=== PATIENT | female | born 1990 | race Caucasian/White ===

== ENCOUNTER 2018-07-11 05:51 | Emergency (ER) | payer SELFPAY ==
[~2018-07-11] VITALS: Ht 157.5 cm; Wt 80.0 kg
[~2018-07-11 05:51] MED LIST: CIPROFLOXACN500 MG PO; METRONIDAZOL500 MG PO
[2018-07-11 06:39] LABS: IMMATURE GRANULOCYTES 0.6 % (0.0-5.0); MEAN CELL VOLUME 90.2 fL CALC (80.0-100.0); MEAN CORPUSCULAR HGB CONC 33.3 g/L CALC (32.0-36.0); NEUT# 6.15 thou/uL (2.00-7.15); RED BLOOD COUNT 4.7 mill/uL (4.20-5.60); RED CELL DISTRI WIDTH 12.5 % (11.5-15.5)
[2018-07-11 06:40] LABS: HEMATOCRIT 42.4 % (37.0-47.0); HEMOGLOBIN 14.1 g/dl (12.0-16.0)
[2018-07-11 06:53] LABS: ALKALINE PHOSPHATASE 87 u/l (38-126); ANION GAP 11 (6-22 (CALC)); BILIRUBIN, TOTAL 0.6 mg/dL (0.0-1.4); BUN 12 mg/dL (7-17); BUN/CREATININE RATIO 17 (12-20 (CALC)); CARBON DIOXIDE 24 mmol/l (22-30); CHLORIDE 109 mmol/l (95-108); CREATININE 0.7 mg/dL (0.5-1.0); GFR > 60 ML/MIN (>=60 (CALC)); GFR FOR AFR.AMER. > 60 ML/MIN (>=60 (CALC)); POTASSIUM 3.7 mmol/l (3.5-5.1); SGOT/AST 15 u/l (14-36); SODIUM 140 mmol/l (137-146); TOTAL PROTEIN 6.5 g/dL (6.3-8.2)
[2018-07-11 07:11] LABS: URINE BILIRUBIN - DIPSTICK NEGATIVE (NEGATIVE); URINE BLOOD DIPSTICK NEGATIVE (NEGATIVE); URINE COLOR YELLOW; URINE GLUCOSE - DIPSTICK NEGATIVE (NEGATIVE); URINE KETONE NEGATIVE (NEGATIVE); URINE LEUK ESTERASE NEGATIVE (NEGATIVE); URINE NITRITE - DIPSTICK NEGATIVE (Negative); URINE PH 5.5 (4.5-8.0); URINE PROTEIN - DIPSTICK NEGATIVE (NEG-TRACE); URINE SPECIFIC GRAVITY >=1.030; URINE UROBILINOGEN - DIPSTICK 0.2 E.U./dL (0.2)
[2018-07-11] MEDS ORDERED: ONDANSETRON4 MG PO (07:16)
[2018-07-11] MEDS ORDERED: ZITHROMAX250 MG PO (07:16)
[2018-07-11 07:26] VITALS: BP 128/70
== END 2018-07-11 07:26 | disposition home or self-care (01) | DRG 392 ==
LOC: ED 05:51
PROVIDERS: Family Medicine
DX: K52.9 Noninfective gastroenteritis and colitis, unspecified (principal); J02.9 Acute pharyngitis, unspecified; F17.210 Nicotine dependence, cigarettes, uncomplicated

== ENCOUNTER 2018-08-05 11:26 | Emergency (ER) | payer SELFPAY ==
[~2018-08-05] VITALS: Ht 157.5 cm; Wt 65.9 kg
[~2018-08-05 11:26] MED LIST changes: +ONDANSETRON4 MG PO; +ZITHROMAX250 MG PO
[2018-08-05 12:13] LABS: HEMATOCRIT 42.3 % (37.0-47.0); IMMATURE GRANULOCYTES 0.4 % (0.0-5.0); MEAN CELL VOLUME 90.2 fL CALC (80.0-100.0); MEAN CORPUSCULAR HGB 29.9 pG CALC (26.0-32.0); MEAN CORPUSCULAR HGB CONC 33.1 g/L CALC (32.0-36.0); NEUT# 5.51 thou/uL (2.00-7.15); RED BLOOD COUNT 4.69 mill/uL (4.20-5.60); RED CELL DISTRI WIDTH 12.5 % (11.5-15.5)
[2018-08-05 12:14] LABS: URINE BILIRUBIN - DIPSTICK NEGATIVE (NEGATIVE); URINE BLOOD DIPSTICK NEGATIVE (NEGATIVE); URINE COLOR YELLOW; URINE GLUCOSE - DIPSTICK NEGATIVE (NEGATIVE); URINE KETONE NEGATIVE (NEGATIVE); URINE LEUK ESTERASE NEGATIVE (NEGATIVE); URINE PROTEIN - DIPSTICK NEGATIVE (NEG-TRACE)
[2018-08-05 12:15] LABS: URINE BACTERIA MANY hpf; URINE NITRITE - DIPSTICK POSITIVE (Negative)
[2018-08-05 12:32] LABS: ALBUMIN 4.3 g/dL (3.2-5.0); ALKALINE PHOSPHATASE 73 u/l (38-126); ANION GAP 14 (6-22 (CALC)); BILIRUBIN, TOTAL 0.7 mg/dL (0.0-1.4); BUN 17 mg/dL (7-17); BUN/CREATININE RATIO 27 (12-20 (CALC)); CARBON DIOXIDE 20 mmol/l (22-30); CHLORIDE 110 mmol/l (95-108); CREATININE 0.6 mg/dL (0.5-1.0); GFR > 60 ML/MIN (>=60 (CALC)); GFR FOR AFR.AMER. > 60 ML/MIN (>=60 (CALC)); LIPASE 113 u/l (23-300); POTASSIUM 4.1 mmol/l (3.5-5.1); SGOT/AST 18 u/l (14-36); SODIUM 139 mmol/l (137-146); TOTAL PROTEIN 7.3 g/dL (6.3-8.2)
[2018-08-05] MEDS ORDERED: ONDANSETRON4 MG PO (13:42)
[2018-08-05] MEDS ORDERED: CEPHALEXIN500 M1 PO (14:07)
[2018-08-05 14:09] VITALS: BP 104/52
== END 2018-08-05 14:17 | disposition home or self-care (01) | DRG 392 ==
LOC: ED 11:26
PROVIDERS: Family Medicine
DX: K52.9 Noninfective gastroenteritis and colitis, unspecified (principal); F17.200 Nicotine dependence, unspecified, uncomplicated; R82.71 Bacteriuria
CPT/HCPCS: Q9967

== ENCOUNTER 2018-09-20 04:33 | Emergency (ER) | payer SELFPAY ==
[~2018-09-20] VITALS: Ht 157.5 cm; Wt 77.0 kg
[~2018-09-20 04:33] MED LIST changes: +CEPHALEXIN500 M1 PO
[2018-09-20 05:29] LABS: URINE BILIRUBIN - DIPSTICK NEGATIVE (NEGATIVE); URINE BLOOD DIPSTICK NEGATIVE (NEGATIVE); URINE COLOR YELLOW; URINE GLUCOSE - DIPSTICK NEGATIVE (NEGATIVE); URINE KETONE NEGATIVE (NEGATIVE); URINE LEUK ESTERASE NEGATIVE (NEGATIVE); URINE NITRITE - DIPSTICK NEGATIVE (Negative); URINE PH 7.5 (4.5-8.0); URINE PROTEIN - DIPSTICK NEGATIVE (NEG-TRACE); URINE UROBILINOGEN - DIPSTICK 0.2 E.U./dL (0.2)
[2018-09-20 05:33] LABS: HEMATOCRIT 42.2 % (37.0-47.0); HEMOGLOBIN 14.1 g/dl (12.0-16.0); IMMATURE GRANULOCYTES 0.4 % (0.0-5.0); MEAN CELL VOLUME 89.2 fL CALC (80.0-100.0); MEAN CORPUSCULAR HGB 29.8 pG CALC (26.0-32.0); MEAN CORPUSCULAR HGB CONC 33.4 g/L CALC (32.0-36.0); NEUT# 5.68 thou/uL (2.00-7.15); RED BLOOD COUNT 4.73 mill/uL (4.20-5.60); RED CELL DISTRI WIDTH 12.5 % (11.5-15.5)
[2018-09-20 06:00] LABS: ALBUMIN 4.4 g/dL (3.2-5.0); ALKALINE PHOSPHATASE 82 u/l (38-126); AMYLASE 83 u/l (30-110); ANION GAP 16 (6-22 (CALC)); BILIRUBIN, TOTAL 0.3 mg/dL (0.0-1.4); BUN 11 mg/dL (7-17); BUN/CREATININE RATIO 21 (12-20 (CALC)); CARBON DIOXIDE 22 mmol/l (22-30); CHLORIDE 106 mmol/l (95-108); CREATININE 0.5 mg/dL (0.5-1.0); GFR > 60 ML/MIN (>=60 (CALC)); GFR FOR AFR.AMER. > 60 ML/MIN (>=60 (CALC)); LIPASE 157 u/l (23-300); POTASSIUM 4.1 mmol/l (3.5-5.1); SGOT/AST 19 u/l (14-36); SODIUM 139 mmol/l (137-146); TOTAL PROTEIN 7.1 g/dL (6.3-8.2)
[2018-09-20] MEDS ORDERED: ZOFRAN ODT4 MG PO (06:48)
[2018-09-20 06:52] VITALS: BP 95/47
== END 2018-09-20 07:00 | disposition home or self-care (01) | DRG 833 ==
LOC: ED 04:33
PROVIDERS: Family Medicine
DX: O21.9 Vomiting of pregnancy, unspecified (principal); O99.330 Smoking (tobacco) complicating pregnancy, unspecified trimester; F17.200 Nicotine dependence, unspecified, uncomplicated; Z3A.00 Weeks of gestation of pregnancy not specified

== ENCOUNTER 2018-09-25 11:04 | Emergency (ER) | payer SELFPAY ==
[~2018-09-25] VITALS: Ht 157.5 cm; Wt 90.0 kg
[~2018-09-25 11:04] MED LIST changes: +ZOFRAN ODT4 MG PO
[2018-09-25 11:49] LABS: HEMATOCRIT 41.4 % (37.0-47.0); HEMOGLOBIN 13.8 g/dl (12.0-16.0); IMMATURE GRANULOCYTES 0.4 % (0.0-5.0); MEAN CELL VOLUME 87.7 fL CALC (80.0-100.0); MEAN CORPUSCULAR HGB 29.2 pG CALC (26.0-32.0); MEAN CORPUSCULAR HGB CONC 33.3 g/L CALC (32.0-36.0); NEUT# 6.74 thou/uL (2.00-7.15); RED BLOOD COUNT 4.72 mill/uL (4.20-5.60); RED CELL DISTRI WIDTH 12.4 % (11.5-15.5)
[2018-09-25 12:10] LABS: ALBUMIN 4.7 g/dL (3.2-5.0); ALKALINE PHOSPHATASE 70 u/l (38-126); ANION GAP 16 (6-22 (CALC)); BUN 12 mg/dL (7-17); BUN/CREATININE RATIO 24 (12-20 (CALC)); CARBON DIOXIDE 20 mmol/l (22-30); CHLORIDE 107 mmol/l (95-108); CREATININE 0.5 mg/dL (0.5-1.0); GFR > 60 ML/MIN (>=60 (CALC)); GFR FOR AFR.AMER. > 60 ML/MIN (>=60 (CALC)); LIPASE 117 u/l (23-300); SGOT/AST 15 u/l (14-36); SODIUM 140 mmol/l (137-146); TOTAL PROTEIN 7.5 g/dL (6.3-8.2)
[2018-09-25 12:12] LABS: BILIRUBIN, TOTAL 0.7 mg/dL (0.0-1.4)
[2018-09-25 12:27] LABS: URINE BILIRUBIN - DIPSTICK NEGATIVE (NEGATIVE); URINE BLOOD DIPSTICK NEGATIVE (NEGATIVE); URINE GLUCOSE - DIPSTICK NEGATIVE (NEGATIVE); URINE KETONE TRACE mg/dL (NEGATIVE); URINE LEUK ESTERASE TRACE (NEGATIVE); URINE NITRITE - DIPSTICK NEGATIVE (Negative); URINE PROTEIN - DIPSTICK NEGATIVE (NEG-TRACE); URINE UROBILINOGEN - DIPSTICK 0.2 E.U./dL (0.2)
[2018-09-25 12:29] LABS: URINE COLOR YELLOW
[2018-09-25 12:58] LABS: BETA-HCG, QUANT(RESULT NUMBER) 111860 mIU/mL
[2018-09-25] MEDS ORDERED: REGLAN10 MG PO (14:12)
[2018-09-25 14:22] VITALS: BP 104/58
== END 2018-09-25 14:24 | disposition home or self-care (01) | DRG 833 ==
LOC: ED 11:04
PROVIDERS: Family Medicine
DX: O99.611 Diseases of the digestive system complicating pregnancy, first trimester (principal); K52.9 Noninfective gastroenteritis and colitis, unspecified; Z3A.00 Weeks of gestation of pregnancy not specified

== ENCOUNTER 2018-10-23 21:43 | Emergency (ER) | payer OTHER ==
[~2018-10-23] VITALS: Ht 157.5 cm; Wt 73.0 kg
[~2018-10-23 21:43] MED LIST changes: +REGLAN10 MG PO
[2018-10-23 22:43] LABS: HEMOGLOBIN 12.8 g/dl (12.0-16.0); IMMATURE GRANULOCYTES 1.2 % (0.0-5.0); MEAN CORPUSCULAR HGB 29.6 pG CALC (26.0-32.0); MEAN CORPUSCULAR HGB CONC 33.7 g/L CALC (32.0-36.0); NEUT# 7.82 thou/uL (2.00-7.15); RED BLOOD COUNT 4.32 mill/uL (4.20-5.60); RED CELL DISTRI WIDTH 12.5 % (11.5-15.5)
[2018-10-23 23:08] LABS: ALBUMIN 4.3 g/dL (3.2-5.0); ALKALINE PHOSPHATASE 55 u/l (38-126); AMYLASE 76 u/l (30-110); ANION GAP 16 (6-22 (CALC)); BUN 13 mg/dL (7-17); BUN/CREATININE RATIO 27 (12-20 (CALC)); CARBON DIOXIDE 19 mmol/l (22-30); CHLORIDE 108 mmol/l (95-108); CREATININE 0.5 mg/dL (0.5-1.0); GFR > 60 ML/MIN (>=60 (CALC)); GFR FOR AFR.AMER. > 60 ML/MIN (>=60 (CALC)); LIPASE 133 u/l (23-300); POTASSIUM 4.4 mmol/l (3.5-5.1); SGOT/AST 22 u/l (14-36); SODIUM 138 mmol/l (137-146); TOTAL PROTEIN 6.9 g/dL (6.3-8.2)
[2018-10-23 23:13] LABS: BILIRUBIN, TOTAL 0.4 mg/dL (0.0-1.4)
[2018-10-24] VITALS: BP 131/61
[2018-10-24 00:23] LABS: URINE BILIRUBIN - DIPSTICK NEGATIVE (NEGATIVE); URINE BLOOD DIPSTICK NEGATIVE (NEGATIVE); URINE COLOR YELLOW; URINE GLUCOSE - DIPSTICK NEGATIVE (NEGATIVE); URINE KETONE 40 mg/dL (NEGATIVE); URINE NITRITE - DIPSTICK NEGATIVE (Negative); URINE PH 5.5 (4.5-8.0); URINE PROTEIN - DIPSTICK NEGATIVE (NEG-TRACE); URINE SPECIFIC GRAVITY 1.025; URINE UROBILINOGEN - DIPSTICK 0.2 E.U./dL (0.2)
[2018-10-24 00:28] LABS: URINE LEUK ESTERASE SMALL (NEGATIVE)
[2018-10-24 00:35] LABS: URINE BACTERIA MODERATE hpf; URINE SQUAMOUS EPITHELIAL CELL FEW EPI/hpf (0-FEW)
[2018-10-24] MEDS ORDERED: CEPHALEXIN500 M1 PO (00:42)
[2018-10-24] MEDS ORDERED: PHENERGAN25 MG/TAB PO (00:42)
== END 2018-10-24 00:52 | disposition home or self-care (01) ==
LOC: ED 21:43
PROVIDERS: Emergency Medicine
DX: O23.91 Unspecified genitourinary tract infection in pregnancy, first trimester (principal); R11.2 Nausea with vomiting, unspecified; Z3A.12 12 weeks gestation of pregnancy

== ENCOUNTER 2018-11-05 22:41 | Emergency (ER) | payer OTHER ==
[~2018-11-05] VITALS: Ht 157.5 cm; Wt 78.4 kg
[~2018-11-05 22:41] MED LIST changes: +PHENERGAN25 MG/TAB PO
[2018-11-05 23:47] LABS: URINE BILIRUBIN - DIPSTICK NEGATIVE (NEGATIVE); URINE BLOOD DIPSTICK NEGATIVE (NEGATIVE); URINE COLOR YELLOW; URINE GLUCOSE - DIPSTICK NEGATIVE (NEGATIVE); URINE KETONE NEGATIVE (NEGATIVE); URINE NITRITE - DIPSTICK NEGATIVE (Negative); URINE PROTEIN - DIPSTICK NEGATIVE (NEG-TRACE); URINE SPECIFIC GRAVITY 1.025; URINE UROBILINOGEN - DIPSTICK 0.2 E.U./dL (0.2)
[2018-11-05 23:48] LABS: HEMATOCRIT 36.1 % (37.0-47.0); HEMOGLOBIN 12.1 g/dl (12.0-16.0); IMMATURE GRANULOCYTES 0.7 % (0.0-5.0); MEAN CELL VOLUME 89.1 fL CALC (80.0-100.0); MEAN CORPUSCULAR HGB 29.9 pG CALC (26.0-32.0); MEAN CORPUSCULAR HGB CONC 33.5 g/L CALC (32.0-36.0); NEUT# 8.83 thou/uL (2.00-7.15); RED BLOOD COUNT 4.05 mill/uL (4.20-5.60); RED CELL DISTRI WIDTH 12.9 % (11.5-15.5); URINE LEUK ESTERASE MODERATE (NEGATIVE)
[2018-11-05 23:49] LABS: URINE BACTERIA FEW hpf; URINE EPITHELIAL CELLS MODERATE EPI/hpf (0-FEW)
[2018-11-06 00:05] LABS: ALKALINE PHOSPHATASE 50 u/l (38-126); AMYLASE 116 u/l (30-110); ANION GAP 12 (6-22 (CALC)); BILIRUBIN, TOTAL 0.3 mg/dL (0.0-1.4); BUN 9 mg/dL (7-17); BUN/CREATININE RATIO 20 (12-20 (CALC)); CHLORIDE 105 mmol/l (95-108); CREATININE 0.5 mg/dL (0.5-1.0); GFR > 60 ML/MIN (>=60 (CALC)); GFR FOR AFR.AMER. > 60 ML/MIN (>=60 (CALC)); LIPASE 257 u/l (23-300); POTASSIUM 3.8 mmol/l (3.5-5.1); SGOT/AST 15 u/l (14-36); SODIUM 137 mmol/l (137-146); TOTAL PROTEIN 6.5 g/dL (6.3-8.2)
[2018-11-06 00:06] LABS: CARBON DIOXIDE 24 mmol/l (22-30)
[2018-11-06] MEDS ORDERED: CEPHALEXIN500 M1 PO (00:48)
[2018-11-06] MEDS ORDERED: PHENERGAN25 MG/TAB PO (00:48)
[2018-11-06] MEDS ORDERED: PHENERGAN25 M1 PR (00:48)
[2018-11-06 01:18] VITALS: BP 118/67
== END 2018-11-06 01:15 | disposition home or self-care (01) ==
LOC: ED 22:41
PROVIDERS: Emergency Medicine
DX: O21.0 Mild hyperemesis gravidarum (principal); O23.42 Unspecified infection of urinary tract in pregnancy, second trimester; O99.332 Smoking (tobacco) complicating pregnancy, second trimester; F17.200 Nicotine dependence, unspecified, uncomplicated; Z3A.14 14 weeks gestation of pregnancy

== ENCOUNTER 2019-01-05 18:28 | Emergency (ER) | payer OTHER ==
[~2019-01-05] VITALS: Ht 157.5 cm; Wt 78.0 kg
[~2019-01-05 18:28] MED LIST changes: +PHENERGAN25 M1 PR
[2019-01-05 19:38] LABS: URINE BLOOD DIPSTICK NEGATIVE (NEGATIVE); URINE COLOR YELLOW; URINE GLUCOSE - DIPSTICK NEGATIVE (NEGATIVE); URINE KETONE >=80 mg/dL (NEGATIVE); URINE LEUK ESTERASE NEGATIVE (NEGATIVE); URINE NITRITE - DIPSTICK NEGATIVE (Negative); URINE PH 6.5 (4.5-8.0); URINE PROTEIN - DIPSTICK 30 mg/dL (NEG-TRACE); URINE SPECIFIC GRAVITY 1.025; URINE UROBILINOGEN - DIPSTICK 0.2 E.U./dL (0.2)
[2019-01-05 19:42] LABS: URINE BILIRUBIN - DIPSTICK NEGATIVE (NEGATIVE); URINE RBC 0-2 RBC/hpf (0-5); URINE SQUAMOUS EPITHELIAL CELL FEW EPI/hpf (0-FEW); URINE WBC 0-2 WBC/hpf (0-5)
[2019-01-05 19:44] LABS: HEMATOCRIT 37.5 % (37.0-47.0); HEMOGLOBIN 12.5 g/dl (12.0-16.0); MEAN CELL VOLUME 89.9 fL CALC (80.0-100.0); MEAN CORPUSCULAR HGB CONC 33.3 g/L CALC (32.0-36.0); NEUT# 10.74 thou/uL (2.00-7.15); RED BLOOD COUNT 4.17 mill/uL (4.20-5.60)
[2019-01-05] MEDS ORDERED: PROTONIX20 M1 PO (19:54)
[2019-01-05] MEDS ORDERED: OB COMPLET2 PO (19:54)
[2019-01-05 20:01] LABS: ALBUMIN 4.1 g/dL (3.2-5.0); ALKALINE PHOSPHATASE 70 u/l (38-126); AMYLASE 106 u/l (30-110); ANION GAP 15 (6-22 (CALC)); BUN 8 mg/dL (7-17); BUN/CREATININE RATIO 19 (12-20 (CALC)); CARBON DIOXIDE 20 mmol/l (22-30); CHLORIDE 107 mmol/l (95-108); CREATININE 0.4 mg/dL (0.5-1.0); GFR > 60 ML/MIN (>=60 (CALC)); GFR FOR AFR.AMER. > 60 ML/MIN (>=60 (CALC)); LIPASE 102 u/l (23-300); SGOT/AST 18 u/l (14-36); SODIUM 138 mmol/l (137-146); TOTAL PROTEIN 7.1 g/dL (6.3-8.2)
[2019-01-05 20:02] LABS: BILIRUBIN, TOTAL 0.5 mg/dL (0.0-1.4)
[2019-01-05 20:44] VITALS: BP 110/87
== END 2019-01-05 20:37 | disposition short-term general hospital (02) ==
LOC: ED 18:28
PROVIDERS: Emergency Medicine
DX: O26.892 Other specified pregnancy related conditions, second trimester (principal); R10.30 Lower abdominal pain, unspecified; O99.332 Smoking (tobacco) complicating pregnancy, second trimester; F17.210 Nicotine dependence, cigarettes, uncomplicated; Z3A.22 22 weeks gestation of pregnancy

== ENCOUNTER 2019-10-25 20:31 | Emergency (ER) | payer OTHER ==
[~2019-10-25 20:31] MED LIST changes: +OB COMPLET2 PO; +PROTONIX20 M1 PO
[2019-10-25 21:12] LABS: IMMATURE GRANULOCYTES 0.4 % (0.0-5.0); MEAN CORPUSCULAR HGB 29.1 pG CALC (26.0-32.0); MEAN CORPUSCULAR HGB CONC 33.5 g/dL CAL (32.0-36.0); NEUT# 7.92 thou/uL (2.00-7.15); RED BLOOD COUNT 4.84 mill/uL (4.20-5.60); RED CELL DISTRI WIDTH 13.4 % (11.5-15.5)
[2019-10-25 21:21] LABS: HEMATOCRIT 42.1 % (37.0-47.0); HEMOGLOBIN 14.1 g/dl (12.0-16.0)
[2019-10-25 21:28] LABS: PROTHROMBIN TIME 10.7 SECONDS (9.0-12.5)
[2019-10-25 21:31] LABS: ALBUMIN 4.3 g/dL (3.2-5.0); ALKALINE PHOSPHATASE 93 u/l (38-126); AMYLASE 132 u/l (30-110); ANION GAP 14 (6-22 (CALC)); BILIRUBIN, TOTAL 0.3 mg/dL (0.0-1.4); BUN 18 mg/dL (7-17); BUN/CREATININE RATIO 20 (12-20 (CALC)); CARBON DIOXIDE 20 mmol/l (22-30); CHLORIDE 106 mmol/l (95-108); CREATININE 0.9 mg/dL (0.5-1.0); ETHYL ALCOHOL 0 mg/dl (0-30); GFR > 60 ML/MIN (>=60 (CALC)); GFR FOR AFR.AMER. > 60 ML/MIN (>=60 (CALC)); LIPASE 176 u/l (23-300); POTASSIUM 3.7 mmol/l (3.5-5.1); SODIUM 136 mmol/l (137-146); TOTAL PROTEIN 7.5 g/dL (6.3-8.2)
[2019-10-25 21:32] LABS: URINE BILIRUBIN - DIPSTICK NEGATIVE (NEGATIVE); URINE BLOOD DIPSTICK NEGATIVE (NEGATIVE); URINE COLOR YELLOW; URINE GLUCOSE - DIPSTICK NEGATIVE (NEGATIVE); URINE KETONE NEGATIVE (NEGATIVE); URINE LEUK ESTERASE NEGATIVE (NEGATIVE); URINE NITRITE - DIPSTICK NEGATIVE (Negative); URINE PH 5.5 (4.5-8.0); URINE PROTEIN - DIPSTICK NEGATIVE (NEG-TRACE); URINE SPECIFIC GRAVITY >=1.030; URINE UROBILINOGEN - DIPSTICK 0.2 E.U./dL (0.2)
[2019-10-25 21:33] LABS: SGOT/AST 33 u/l (14-36)
[2019-10-25 21:43] LABS: BARBITURATES NEGATIVE (NEGATIVE); COCAINE NEGATIVE (NEGATIVE); METHADONE NEGATIVE (NEGATIVE); OXCYCODONE NEGATIVE (NEGATIVE); TETRAHYDROCANNABIONOL POSITIVE (NEGATIVE); TRICYLIC ANTIDEPRESSANTS NEGATIVE (NEGATIVE)
[2019-10-25] MEDS ORDERED: KEPPRA500 M2 PO (23:34)
[2019-10-25 23:45] VITALS: BP 112/70
== END 2019-10-25 23:51 | disposition home or self-care (01) ==
LOC: ED 20:31
DX: G40.909 Epilepsy, unspecified, not intractable, without status epilepticus (principal); T42.76XA Underdosing of unspecified antiepileptic and sedative-hypnotic drugs, initial encounter; F17.200 Nicotine dependence, unspecified, uncomplicated; Z91.128 Patient's intentional underdosing of medication regimen for other reason
CPT/HCPCS: J1953

== ENCOUNTER 2019-11-26 17:51 | Emergency (ER) | payer OTHER ==
[~2019-11-26] VITALS: Ht 157.5 cm; Wt 80.0 kg
[~2019-11-26 17:51] MED LIST changes: +KEPPRA500 M2 PO
[2019-11-26 19:05] LABS: HEMATOCRIT 41.7 % (37.0-47.0); HEMOGLOBIN 13.6 g/dl (12.0-16.0); IMMATURE GRANULOCYTES 0.2 % (0.0-5.0); MEAN CELL VOLUME 87.6 fL CALC (80.0-100.0); MEAN CORPUSCULAR HGB 28.6 pG CALC (26.0-32.0); MEAN CORPUSCULAR HGB CONC 32.6 g/dL CAL (32.0-36.0); NEUT# 8.12 thou/uL (2.00-7.15); RED BLOOD COUNT 4.76 mill/uL (4.20-5.60); RED CELL DISTRI WIDTH 13.2 % (11.5-15.5)
[2019-11-26 19:13] LABS: ALBUMIN 4.5 g/dL (3.2-5.0); ALKALINE PHOSPHATASE 97 u/l (38-126); ANION GAP 12 (6-22 (CALC)); BILIRUBIN, TOTAL 0.2 mg/dL (0.0-1.4); BUN 17 mg/dL (7-17); BUN/CREATININE RATIO 24 (12-20 (CALC)); CARBON DIOXIDE 22 mmol/l (22-30); CHLORIDE 108 mmol/l (95-108); CREATININE 0.7 mg/dL (0.5-1.0); GFR > 60 ML/MIN (>=60 (CALC)); GFR FOR AFR.AMER. > 60 ML/MIN (>=60 (CALC)); MAGNESIUM 1.7 mg/dL (1.6-2.3); POTASSIUM 3.5 mmol/l (3.5-5.1); SGOT/AST 20 u/l (14-36); SODIUM 138 mmol/l (137-146); TOTAL PROTEIN 7.5 g/dL (6.3-8.2)
[2019-11-26 20:20] LABS: URINE BILIRUBIN - DIPSTICK NEGATIVE (NEGATIVE); URINE BLOOD DIPSTICK NEGATIVE (NEGATIVE); URINE COLOR YELLOW; URINE GLUCOSE - DIPSTICK NEGATIVE (NEGATIVE); URINE KETONE NEGATIVE (NEGATIVE); URINE NITRITE - DIPSTICK NEGATIVE (Negative); URINE PROTEIN - DIPSTICK NEGATIVE (NEG-TRACE); URINE SPECIFIC GRAVITY >=1.030
[2019-11-26 20:22] LABS: URINE LEUK ESTERASE SMALL (NEGATIVE)
[2019-11-26 20:31] LABS: URINE BACTERIA MODERATE hpf; URINE SQUAMOUS EPITHELIAL CELL MODERATE EPI/hpf (0-FEW)
[2019-11-26] MEDS ORDERED: KEPPRA500 M2 PO (20:39)
[2019-11-26 20:41] VITALS: BP 157/72
== END 2019-11-26 20:47 | disposition home or self-care (01) ==
LOC: ED 17:51
DX: G40.909 Epilepsy, unspecified, not intractable, without status epilepticus (principal); S70.11XA Contusion of right thigh, initial encounter; T42.6X6A Underdosing of other antiepileptic and sedative-hypnotic drugs, initial encounter; F17.200 Nicotine dependence, unspecified, uncomplicated; W22.8XXA Striking against or struck by other objects, initial encounter; Z91.128 Patient's intentional underdosing of medication regimen for other reason
CPT/HCPCS: J1953

== ENCOUNTER 2020-07-19 17:03 | Emergency (ER) | payer OTHER ==
[~2020-07-19] VITALS: Ht 157.5 cm; Wt 77.0 kg
[2020-07-19 17:21] LABS: HEMATOCRIT 41.7 % (37.0-47.0); IMMATURE GRANULOCYTES 0.4 % (0.0-5.0); MEAN CELL VOLUME 86.9 fL CALC (80.0-100.0); MEAN CORPUSCULAR HGB 29.2 pG CALC (26.0-32.0); MEAN CORPUSCULAR HGB CONC 33.6 g/dL CAL (32.0-36.0); NEUT# 5.97 thou/uL (2.00-7.15); RED BLOOD COUNT 4.8 mill/uL (4.20-5.60); RED CELL DISTRI WIDTH 13.2 % (11.5-15.5)
[2020-07-19 17:43] LABS: ALBUMIN 4.3 g/dL (3.2-5.0); ALKALINE PHOSPHATASE 83 u/l (38-126); ANION GAP 16 (6-22 (CALC)); BUN 13 mg/dL (7-17); BUN/CREATININE RATIO 22 (12-20 (CALC)); CARBON DIOXIDE 19 mmol/l (22-30); CHLORIDE 107 mmol/l (95-108); CREATININE 0.6 mg/dL (0.5-1.0); GFR > 60 ML/MIN (>=60 (CALC)); GFR FOR AFR.AMER. > 60 ML/MIN (>=60 (CALC)); POTASSIUM 3.9 mmol/l (3.5-5.1); SGOT/AST 24 u/l (14-36); SODIUM 138 mmol/l (137-146); TOTAL PROTEIN 7.1 g/dL (6.3-8.2)
[2020-07-19 17:44] LABS: BILIRUBIN, TOTAL 0.8 mg/dL (0.0-1.4)
[2020-07-19 19:25] VITALS: BP 122/66
== END 2020-07-19 19:25 | disposition home or self-care (01) ==
LOC: ED 17:03
DX: G40.909 Epilepsy, unspecified, not intractable, without status epilepticus (principal); S01.01XA Laceration without foreign body of scalp, initial encounter; F17.210 Nicotine dependence, cigarettes, uncomplicated; T42.76XA Underdosing of unspecified antiepileptic and sedative-hypnotic drugs, initial encounter; X58.XXXA Exposure to other specified factors, initial encounter; Z91.128 Patient's intentional underdosing of medication regimen for other reason
CPT/HCPCS: J2060

== ENCOUNTER 2021-01-04 23:15 | Emergency (ER) | payer OTHER ==
[2021-01-04] MEDS ORDERED: [UNRECOGNIZED DRUG - OTHER] (23:53)
[2021-01-04] MEDS ORDERED: [UNRECOGNIZED DRUG - OTHER] (23:53)
[2021-01-05 00:29] LABS: URINE BILIRUBIN - DIPSTICK NEGATIVE (NEGATIVE); URINE BLOOD DIPSTICK NEGATIVE (NEGATIVE); URINE COLOR YELLOW; URINE GLUCOSE - DIPSTICK NEGATIVE (NEGATIVE); URINE KETONE NEGATIVE (NEGATIVE); URINE LEUK ESTERASE NEGATIVE (NEGATIVE); URINE PH 6.5 (4.5-8.0); URINE PROTEIN - DIPSTICK NEGATIVE (NEG-TRACE); URINE UROBILINOGEN - DIPSTICK 0.2 E.U./dL (0.2)
[2021-01-05 00:32] LABS: URINE NITRITE - DIPSTICK NEGATIVE (Negative)
[2021-01-05] MEDS ORDERED: CYCLOBENZAPRINE10 MG PO (01:46)
[2021-01-05] MEDS ORDERED: ULTRAM50 M1 PO (01:46)
[2021-01-05 02:01] VITALS: BP 127/80
== END 2021-01-05 02:13 | disposition home or self-care (01) ==
LOC: ED 23:15
PROVIDERS: Emergency Medicine
DX: M47.816 Spondylosis without myelopathy or radiculopathy, lumbar region (principal); F41.9 Anxiety disorder, unspecified; F32.9 Major depressive disorder, single episode, unspecified; F17.200 Nicotine dependence, unspecified, uncomplicated; Z86.14 Personal history of Methicillin resistant Staphylococcus aureus infection

== ENCOUNTER 2021-01-29 17:25 | Emergency (ER) | payer OTHER ==
[~2021-01-29] VITALS: Ht 154.9 cm; Wt 77.0 kg
[~2021-01-29 17:25] MED LIST changes: +CYCLOBENZAPRINE10 MG PO; +ULTRAM50 M1 PO; +[UNRECOGNIZED DRUG - OTHER]; +[UNRECOGNIZED DRUG - OTHER]
[2021-01-29] MEDS ORDERED: MEDDOSEPAK PO (18:39)
[2021-01-29 19:00] VITALS: BP 125/81
== END 2021-01-29 19:00 | disposition home or self-care (01) ==
LOC: ED 17:25
DX: M47.816 Spondylosis without myelopathy or radiculopathy, lumbar region (principal); F41.9 Anxiety disorder, unspecified; F32.9 Major depressive disorder, single episode, unspecified; F17.210 Nicotine dependence, cigarettes, uncomplicated; Z86.14 Personal history of Methicillin resistant Staphylococcus aureus infection

== ENCOUNTER 2021-02-23 22:38 | Emergency (ER) | payer OTHER ==
[~2021-02-23] VITALS: Ht 154.9 cm; Wt 80.0 kg
[~2021-02-23 22:38] MED LIST changes: +MEDDOSEPAK PO
[2021-02-23 23:59] LABS: HEMATOCRIT 46.2 % (37.0-47.0); IMMATURE GRANULOCYTES 0.5 % (0.0-5.0); MEAN CELL VOLUME 90.1 fL CALC (80.0-100.0); MEAN CORPUSCULAR HGB 29.2 pG CALC (26.0-32.0); MEAN CORPUSCULAR HGB CONC 32.5 g/dL CAL (32.0-36.0); NEUT# 9.87 thou/uL (2.00-7.15); RED BLOOD COUNT 5.13 mill/uL (4.20-5.60); RED CELL DISTRI WIDTH 12.8 % (11.5-15.5); URINE BILIRUBIN - DIPSTICK NEGATIVE (NEGATIVE); URINE BLOOD DIPSTICK NEGATIVE (NEGATIVE); URINE COLOR YELLOW; URINE GLUCOSE - DIPSTICK NEGATIVE (NEGATIVE); URINE KETONE 15 mg/dL (NEGATIVE); URINE LEUK ESTERASE SMALL (NEGATIVE); URINE NITRITE - DIPSTICK NEGATIVE (Negative); URINE PROTEIN - DIPSTICK NEGATIVE (NEG-TRACE); URINE SPECIFIC GRAVITY 1.025; URINE UROBILINOGEN - DIPSTICK 0.2 E.U./dL (0.2)
[2021-02-24 00:18] LABS: URINE SQUAMOUS EPITHELIAL CELL MANY EPI/hpf (0-FEW); URINE WBC 0-2 WBC/hpf (0-5)
[2021-02-24 00:22] LABS: ALBUMIN 4.6 g/dL (3.2-5.0); ALKALINE PHOSPHATASE 100 u/l (38-126); ANION GAP 14 (6-22 (CALC)); BILIRUBIN, TOTAL 0.5 mg/dL (0.0-1.4); BUN 14 mg/dL (7-17); BUN/CREATININE RATIO 22 (12-20 (CALC)); CARBON DIOXIDE 23 mmol/l (22-30); CHLORIDE 108 mmol/l (95-108); CREATININE 0.6 mg/dL (0.5-1.0); GFR > 60 ML/MIN (>=60 (CALC)); GFR FOR AFR.AMER. > 60 ML/MIN (>=60 (CALC)); POTASSIUM 3.8 mmol/l (3.5-5.1); SGOT/AST 17 u/l (14-36); SODIUM 140 mmol/l (137-146); TOTAL PROTEIN 7.7 g/dL (6.3-8.2)
[2021-02-24 00:43] LABS: BETA-HCG, QUANT(RESULT NUMBER) <2 mIU/mL
[2021-02-24] MEDS ORDERED: ZOFRAN4 MG/TAB PO (01:05)
[2021-02-24] MEDS ORDERED: PROTONIX40 MG PO (01:05)
[2021-02-24 01:26] VITALS: BP 120/70
== END 2021-02-24 01:26 | disposition home or self-care (01) ==
LOC: ED 22:38
DX: R11.2 Nausea with vomiting, unspecified (principal); F41.9 Anxiety disorder, unspecified; F32.9 Major depressive disorder, single episode, unspecified; F17.200 Nicotine dependence, unspecified, uncomplicated

== ENCOUNTER 2021-08-16 19:23 | Emergency (ER) | payer OTHER ==
[~2021-08-16] VITALS: Ht 154.9 cm; Wt 77.0 kg
[~2021-08-16 19:23] MED LIST changes: +PROTONIX40 MG PO; +ZOFRAN4 MG/TAB PO
[2021-08-16 20:41] VITALS: BP 118/83
[2021-08-16] MEDS ORDERED: AMOX/K CLAV875 M1 PO (21:18)
[2021-08-16] MEDS ORDERED: ULTRAM50 MG PO (21:18)
[2021-08-16 22:11] VITALS: BP 118/83
== END 2021-08-16 22:15 | disposition home or self-care (01) ==
LOC: ED 19:23
DX: S61.452A Open bite of left hand, initial encounter (principal); S60.812A Abrasion of left wrist, initial encounter; S80.811A Abrasion, right lower leg, initial encounter; F32.A Depression, unspecified; F41.9 Anxiety disorder, unspecified; F17.200 Nicotine dependence, unspecified, uncomplicated; W54.0XXA Bitten by dog, initial encounter; Y92.410 Unspecified street and highway as the place of occurrence of the external cause; Z86.14 Personal history of Methicillin resistant Staphylococcus aureus infection

== ENCOUNTER 2022-06-24 11:47 | Emergency (ER) | payer OTHER ==
[~2022-06-24] VITALS: Ht 154.9 cm; Wt 77.6 kg
[~2022-06-24 11:47] MED LIST changes: +AMOX/K CLAV875 M1 PO; +ULTRAM50 MG PO
[2022-06-24 13:48] LABS: BASO% 0.6 % (0-3); HEMATOCRIT 44.6 % (37.0-47.0); IMMATURE GRANULOCYTES 0.2 % (0.0-5.0); LYMPH% 24.4 % (15-41); MEAN CELL VOLUME 89.9 fL CALC (80.0-100.0); MEAN CORPUSCULAR HGB 30.2 pG CALC (26.0-32.0); MEAN CORPUSCULAR HGB CONC 33.6 g/dL CAL (32.0-36.0); MONO% 5.8 % (2-13); NEUT# 7.31 thou/uL (2.00-7.15); RED BLOOD COUNT 4.96 mill/uL (4.20-5.60); RED CELL DISTRI WIDTH 12.8 % (11.5-15.5)
[2022-06-24 13:57] LABS: ALBUMIN 4.6 g/dL (3.2-5.0); ALKALINE PHOSPHATASE 79 u/l (38-126); AMYLASE 106 u/l (30-110); ANION GAP 12 (6-22 (CALC)); BILIRUBIN, TOTAL 0.5 mg/dL (0.02-1.3); BUN 14 mg/dL (7-17); BUN/CREATININE RATIO 21 (12-20 (CALC)); CARBON DIOXIDE 21 mmol/l (22-30); CHLORIDE 108 mmol/l (95-108); CREATININE 0.6 mg/dL (0.5-1.0); ETHYL ALCOHOL 0 mg/dl (0-30); GFR FOR AFR.AMER. > 60 ML/MIN (>=60 (CALC)); GFR OTHER RACES > 60 ML/MIN (>=60 (CALC)); LIPASE 122 u/l (23-300); POTASSIUM 4.3 mmol/l (3.5-5.1); SGOT/AST 23 u/l (14-36); SODIUM 137 mmol/l (137-146); TOTAL PROTEIN 7.8 g/dL (6.3-8.2)
[2022-06-24 14:22] VITALS: BP 129/92
== END 2022-06-24 16:51 | disposition home or self-care (01) ==
LOC: ED 11:47
PROVIDERS: Emergency Medicine
DX: K92.0 Hematemesis (principal); K44.9 Diaphragmatic hernia without obstruction or gangrene; G40.909 Epilepsy, unspecified, not intractable, without status epilepticus; F31.9 Bipolar disorder, unspecified; F17.200 Nicotine dependence, unspecified, uncomplicated